=== PATIENT | male | born 1950 | race Caucasian/White ===

== ENCOUNTER 2016-11-16 23:12 | Inpatient (IN) | payer MEDICARE ==
[~2016-11-16] VITALS: Ht 162.6 cm; Wt 129.3 kg
[2016-11-16 23:30] VITALS: BP 113/74
[2016-11-17] VITALS (7 sets, daily range): BP systolic 99–140; BP diastolic 60–96
[2016-11-17 00:06] LABS: BASOPHILS % (AUTO) 0.7 % (0.0-2.0); EOSINOPHILS % (AUTO) 1.3 % (0.0-3.0); LYMPHOCYTES % (AUTO) 11.9 % (20.0-45.0); MEAN CORPUSCULAR HEMOGLOBIN 30.2 PG (27.0-31.0); MEAN CORPUSCULAR HGB CONC 32.7 G/DL (32.0-36.0); MEAN CORPUSCULAR VOLUME 92 FL (80-99); MEAN PLATELET VOLUME 7.9 FL (6.5-10.1); MONOCYTES % (AUTO) 11.5 % (1.0-10.0); NEUTROPHILS % (AUTO) 74.6 % (45.0-75.0); PLATELET COUNT 221 K/UL (150-450); RED BLOOD COUNT 4.33 M/UL (4.70-6.10); RED CELL DISTRIBUTION WIDTH 14.9 % (11.6-14.8); WHITE BLOOD COUNT 11.4 K/UL (4.8-10.8)
[2016-11-17 00:21] LABS: TROPONIN I < 0.30 ng/mL (<=0.30)
[2016-11-17 00:23] LABS: ALBUMIN/GLOBULIN RATIO 1.4 (1.0-2.7); CALCIUM 9.6 mg/dL (8.6-10.2); CREATININE 1.9 mg/dL (0.7-1.2); GLOMERULAR FILTRATION RATE 35.6 mL/min (>60); POTASSIUM 3.4 mEQ/L (3.4-4.9); TOTAL PROTEIN 7.9 g/dL (6.6-8.7)
[2016-11-17 00:33] LABS: CKMB 1.9 ng/mL (< 6.7)
[2016-11-17] MEDS ORDERED: Midodrine 10mg tab ORAL ONE (01:30)
--- NOTE | 2016-11-17 03:03 | Emergency Room Report ---
History of Present Illness General Chief Complaint: Syncope Source: Patient, EMS Present Illness HPI Patient presented for syncopal episode. Patient had reportedly lost consciousness while the standing. Patient prior history of congestive heart failure. Patient been taking diuretics. Patient reports having some slight leg swelling which had been improving. [facility] Allergies: Coded Allergies: No Known Allergies (Unverified , 11/16/16) Patient History Past Medical History: see triage record Reviewed Nursing Documentation: PMH: Agreed, PSxH: Agreed Nursing Documentation-PMH Hx Cardiac Problems: Yes - CHF , 3 HEART ATTACK Review of Systems All Other Systems: negative except mentioned in HPI Physical Exam Vital Signs Date Time Temp Pulse Resp B/P Pulse Ox O2 Delivery O2 Flow Rate FiO2 11/16/16 23:09 98.1 78 18 116/84 99 Room Air Sp02 EP Interpretation: reviewed, normal General Appearance: normal inspection, alert, moderate distress Head: atraumatic ENT: normal ENT inspection, hearing grossly normal, normal voice Neck: normal inspection, full range of motion, supple, no bony tend Respiratory: normal inspection, lungs clear, normal breath sounds, no respiratory distress, no retraction, no wheezing Cardiovascular #1: regular rate, rhythm, edema - 3+ Gastrointestinal: normal inspection, normal bowel sounds, non tender, soft, no guarding, no hernia Genitourinary: no CVA tenderness Musculoskeletal: normal inspection, back normal, normal range of motion Neurologic: normal inspection, alert, oriented x3, 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 Differential diagnosis include was not limited to arrhythmia. Pulmonary embolism, myocardial infarction, orthostasis, vasovagal episode among others.Because of complexity of patient's case laboratory testing and imaging studies were ordered. EKG interpreted by me showed sinus rhythm with a rate of [address] or T wave changes. Patient was noted to have a prolonged QT interval QTC was 512 patient noted have a right bundle-branch block. The patient was given IV Lasix. He is placed on traffic monitor specialist. Chest x-ray one view interpreted by me showed cardiomegaly without evident effusion or infiltrate or mediastinal widening. Dr. farley was contacted for inpatient management. Laboratory Tests Test 11/16/16 23:26 11/17/16 00:24 White Blood Count 11.4 K/UL (4.8-10.8) H Red Blood Count 4.33 M/UL (4.70-6.10) L Hemoglobin 13.1 G/DL (14.2-18.0) L Hematocrit 40.0 % (42.0-52.0) L Mean Corpuscular Volume 92 FL (80-99) Mean Corpuscular Hemoglobin 30.2 PG (27.0-31.0) Mean Corpuscular Hemoglobin Concent 32.7 G/DL (32.0-36.0) Red Cell Distribution Width 14.9 % (11.6-14.8) H Platelet Count 221 K/UL (150-450) Mean Platelet Volume 7.9 FL (6.5-10.1) Neutrophils (%) (Auto) 74.6 % (45.0-75.0) Lymphocytes (%) (Auto) 11.9 % (20.0-45.0) L Monocytes (%) (Auto) 11.5 % (1.0-10.0) H Eosinophils (%) (Auto) 1.3 % (0.0-3.0) Basophils (%) (Auto) 0.7 % (0.0-2.0) Sodium Level 139 mEQ/L (135-145) Potassium Level 3.4 mEQ/L (3.4-4.9) Chloride Level 91 mEQ/L (98-107) L Carbon Dioxide Level 34 mEQ/L (20-30) H Anion Gap 14 (5-15) Blood Urea Nitrogen 34 mg/dL (7-23) H Creatinine 1.9 mg/dL (0.7-1.2) H Estimate Glomerular Filtration Rate 35.6 mL/min (>60) Glucose Level 89 mg/dL (74-106) Calcium Level 9.6 mg/dL (8.6-10.2) Total Bilirubin 0.9 mg/dL (0.0-1.2) Aspartate Amino Transferase (AST) 23 U/L (5-40) Alanine Aminotransferase (ALT) 16 U/L (3-41) Alkaline Phosphatase 76 U/L (40-129) Total Creatine Kinase 184 U/L (38-174) H Creatine Kinase MB 1.9 ng/mL (< 6.7) Creatine Kinase MB Relative Index 1.0 Troponin I < 0.30 ng/mL (<=0.30) Pro-B-Type Natriuretic Peptide 491 pg/mL (0-125) H Total Protein 7.9 g/dL (6.6-8.7) Albumin 4.7 g/dL (3.5-5.2) Globulin 3.2 g/dL Albumin/Globulin Ratio 1.4 (1.0-2.7) Urine Opiates Screen Negative (NEGATIVE) Urine Barbiturates Screen Negative (NEGATIVE) Phencyclidine (PCP) Screen Negative (NEGATIVE) Urine Amphetamines Screen Negative (NEGATIVE) Urine Benzodiazepines Screen Negative (NEGATIVE) Urine Cocaine Screen Negative (NEGATIVE) Urine Marijuana (THC) Screen Negative (NEGATIVE) EKG Diagnostic Results Rate: normal Rhythm: NSR ST Segments: no acute changes Chest X-Ray Diagnostic Results EP Interpretation: Yes Findings: no consolidation, no effusion, no pneumothorax, no acute cardiopulmonary disease Number of Views: 1 Last Vital Signs Date Time Temp Pulse Resp B/P Pulse Ox O2 Delivery O2 Flow Rate FiO2 11/17/16 01:12 98.1 16 103/80 94 Room Air 11/16/16 23:30 71 Status: improved Disposition: ADMITTED INPATIENT Condition: Serious Referrals: NOT CHOSEN BRUNO/,REFERRING (PCP) Usama Baugh Nov 17, 2016 03:03
[2016-11-17] MEDS ORDERED: ASPIRIN81 M3 PO (05:18)
[2016-11-17] MEDS ORDERED: UNOBMED (05:18)
--- NOTE | 2016-11-17 11:39 | Diagnostic Imaging Report ---
Indication: Pain Comparison: None Findings: 2 view left ankle demonstrates soft tissue swelling which is nonspecific. There is no malalignment or fracture. Impression: Soft tissue swelling
--- NOTE | 2016-11-17 11:42 | Diagnostic Imaging Report ---
Indication: Dyspnea Comparison: None A single view chest radiograph was obtained. Findings: Sternotomy noted. Cardiomegaly spelled. Lungs are clear. The bones are slightly osteopenic. Impression: No acute disease
[2016-11-17] MEDS ORDERED: Nitroglycerin Subl 0.4mg tab (Bottle Of 25) SL PRN (12:30)
[2016-11-17] MEDS ORDERED: LORazepam Inj 2mg/ml 1ml IV PRN (12:30)
[2016-11-17] MEDS ORDERED: DuoNeb 0.5-3(2.5)mg/3ml neb HHN PRN (12:30)
[2016-11-17] MEDS ORDERED: Morphine Sulfate 2mg/ml Inj IVP PRN (12:30)
[2016-11-17] MEDS ORDERED: Promethazine/Codeine 5ml UD ORAL PRN (12:30)
[2016-11-17] MEDS ORDERED: Mylanta II UD 30ml ORAL PRN (12:30)
[2016-11-17] MEDS: D5 1/2NS 1,000 ML IV SCH (12:37)
--- NOTE | 2016-11-17 15:03 | Neurology Progress Note ---
Objective Physical Exam Last Vital Signs Date Time Temp Pulse Resp B/P Pulse Ox O2 Delivery O2 Flow Rate FiO2 11/17/16 11:00 61 11/17/16 10:25 98.1 16 128/62 95 Room Air Laboratory Tests Test 11/16/16 23:26 11/17/16 00:24 White Blood Count 11.4 K/UL (4.8-10.8) H Red Blood Count 4.33 M/UL (4.70-6.10) L Hemoglobin 13.1 G/DL (14.2-18.0) L Hematocrit 40.0 % (42.0-52.0) L Mean Corpuscular Volume 92 FL (80-99) Mean Corpuscular Hemoglobin 30.2 PG (27.0-31.0) Mean Corpuscular Hemoglobin Concent 32.7 G/DL (32.0-36.0) Red Cell Distribution Width 14.9 % (11.6-14.8) H Platelet Count 221 K/UL (150-450) Mean Platelet Volume 7.9 FL (6.5-10.1) Neutrophils (%) (Auto) 74.6 % (45.0-75.0) Lymphocytes (%) (Auto) 11.9 % (20.0-45.0) L Monocytes (%) (Auto) 11.5 % (1.0-10.0) H Eosinophils (%) (Auto) 1.3 % (0.0-3.0) Basophils (%) (Auto) 0.7 % (0.0-2.0) Sodium Level 139 mEQ/L (135-145) Potassium Level 3.4 mEQ/L (3.4-4.9) Chloride Level 91 mEQ/L (98-107) L Carbon Dioxide Level 34 mEQ/L (20-30) H Anion Gap 14 (5-15) Blood Urea Nitrogen 34 mg/dL (7-23) H Creatinine 1.9 mg/dL (0.7-1.2) H Estimat Glomerular Filtration Rate 35.6 mL/min (>60) Glucose Level 89 mg/dL (74-106) Calcium Level 9.6 mg/dL (8.6-10.2) Total Bilirubin 0.9 mg/dL (0.0-1.2) Aspartate Amino Transf (AST/SGOT) 23 U/L (5-40) Alanine Aminotransferase (ALT/SGPT) 16 U/L (3-41) Alkaline Phosphatase 76 U/L (40-129) Total Creatine Kinase 184 U/L (38-174) H Creatine Kinase MB 1.9 ng/mL (< 6.7) Creatine Kinase MB Relative Index 1.0 Troponin I < 0.30 ng/mL (<=0.30) Pro-B-Type Natriuretic Peptide 491 pg/mL (0-125) H Total Protein 7.9 g/dL (6.6-8.7) Albumin 4.7 g/dL (3.5-5.2) Globulin 3.2 g/dL Albumin/Globulin Ratio 1.4 (1.0-2.7) Urine Opiates Screen Negative (NEGATIVE) Urine Barbiturates Screen Negative (NEGATIVE) Phencyclidine (PCP) Screen Negative (NEGATIVE) Urine Amphetamines Screen Negative (NEGATIVE) Urine Benzodiazepines Screen Negative (NEGATIVE) Urine Cocaine Screen Negative (NEGATIVE) Urine Marijuana (THC) Screen Negative (NEGATIVE) Impression/Recommendations Problems: (1) Syncope (2) Congestive heart failure (CHF) (3) Prolonged QT interval Status: unchanged Recommendations # [id number] COLE GREENBERG Nov 17, 2016 15:03
--- NOTE | 2016-11-17 15:09 | History and Physical ---
History of Present Illness General Date patient seen: Nov 17, 2016 Reason for Hospitalization: Syncope Present Illness HPI 66 year old male with hx of morbid obesity who was just discharged from [place] [facility] brought with CC of syncopal episode. Patient had reportedly lost consciousness while the standing. Patient prior history of congestive heart failure. He has been taking diuretics. Patient reports having some slight leg swelling which had been improving. Pt is admitted to telemetry for further work up. Allergies: Coded Allergies: No Known Allergies (Unverified , 11/16/16) Medication History Miscellaneous Medications Aspirin (Aspirin), 81 MG PO, (Reported) Unable to Obtain Medications (Unable To Obtain Meds), (Reported) Patient History Healthcare decision maker Resuscitation status Full Code Advanced Directive on File Past Medical/Surgical History Past Medical/Surgical History: (1) Congestive heart failure (CHF) (2) Syncope Review of Systems All Other Systems: negative except mentioned in HPI Physical Exam General Appearance: WD/WN Lines, tubes and drains: peripheral, central line HEENT: normocephalic, atraumatic Neck: non-tender, normal alignment Respiratory/Chest: chest wall non-tender, lungs clear Cardiovascular/Chest: normal peripheral pulses, regular rhythm Abdomen: normal bowel sounds, non tender Genitourinary/Rectal: normal genital exam Extremities: non-tender Last 24 Hour Vital Signs Date Time Temp Pulse Resp B/P Pulse Ox O2 Delivery O2 Flow Rate FiO2 11/17/16 11:00 61 11/17/16 10:25 98.1 63 16 128/62 95 Room Air 11/17/16 08:41 62 20 122/65 97 Room Air 11/17/16 08:27 98.1 62 16 122/65 95 Room Air 11/17/16 06:45 98.1 65 16 140/96 93 Room Air 65 11/17/16 04:00 61 14 112/74 96 Room Air 61 11/17/16 02:21 98.1 11/17/16 01:12 98.1 16 103/80 94 Room Air 11/16/16 23:30 98.1 71 19 113/74 92 Room Air 11/16/16 23:09 98.1 78 18 116/84 99 Room Air Intake and Output 11/16/16 11/17/16 19:00 07:00 # Voids 1 Laboratory Tests Test 11/16/16 23:26 11/17/16 00:24 White Blood Count 11.4 K/UL (4.8-10.8) H Red Blood Count 4.33 M/UL (4.70-6.10) L Hemoglobin 13.1 G/DL (14.2-18.0) L Hematocrit 40.0 % (42.0-52.0) L Mean Corpuscular Volume 92 FL (80-99) Mean Corpuscular Hemoglobin 30.2 PG (27.0-31.0) Mean Corpuscular Hemoglobin Concent 32.7 G/DL (32.0-36.0) Red Cell Distribution Width 14.9 % (11.6-14.8) H Platelet Count 221 K/UL (150-450) Mean Platelet Volume 7.9 FL (6.5-10.1) Neutrophils (%) (Auto) 74.6 % (45.0-75.0) Lymphocytes (%) (Auto) 11.9 % (20.0-45.0) L Monocytes (%) (Auto) 11.5 % (1.0-10.0) H Eosinophils (%) (Auto) 1.3 % (0.0-3.0) Basophils (%) (Auto) 0.7 % (0.0-2.0) Sodium Level 139 mEQ/L (135-145) Potassium Level 3.4 mEQ/L (3.4-4.9) Chloride Level 91 mEQ/L (98-107) L Carbon Dioxide Level 34 mEQ/L (20-30) H Anion Gap 14 (5-15) Blood Urea Nitrogen 34 mg/dL (7-23) H Creatinine 1.9 mg/dL (0.7-1.2) H Estimat Glomerular Filtration Rate 35.6 mL/min (>60) Glucose Level 89 mg/dL (74-106) Calcium Level 9.6 mg/dL (8.6-10.2) Total Bilirubin 0.9 mg/dL (0.0-1.2) Aspartate Amino Transf (AST/SGOT) 23 U/L (5-40) Alanine Aminotransferase (ALT/SGPT) 16 U/L (3-41) Alkaline Phosphatase 76 U/L (40-129) Total Creatine Kinase 184 U/L (38-174) H Creatine Kinase MB 1.9 ng/mL (< 6.7) Creatine Kinase MB Relative Index 1.0 Troponin I < 0.30 ng/mL (<=0.30) Pro-B-Type Natriuretic Peptide 491 pg/mL (0-125) H Total Protein 7.9 g/dL (6.6-8.7) Albumin 4.7 g/dL (3.5-5.2) Globulin 3.2 g/dL Albumin/Globulin Ratio 1.4 (1.0-2.7) Urine Opiates Screen Negative (NEGATIVE) Urine Barbiturates Screen Negative (NEGATIVE) Phencyclidine (PCP) Screen Negative (NEGATIVE) Urine Amphetamines Screen Negative (NEGATIVE) Urine Benzodiazepines Screen Negative (NEGATIVE) Urine Cocaine Screen Negative (NEGATIVE) Urine Marijuana (THC) Screen Negative (NEGATIVE) Height (Feet): 5 Height (Inches): 4.00 Weight (Pounds): 285 Medications Current Medications Medications (Trade) Dose Ordered Sig/Gregorio Route PRN Reason Start Time Stop Time Status Last Admin Dose Admin Acetaminophen (Tylenol) 650 mg Q4H PRN ORAL fever>100.5 11/17/16 12:30 12/17/16 12:29 Al Hydroxide/Mg Hydroxide (Mylanta II) 30 ml Q6H PRN ORAL dyspepsia 11/17/16 12:30 12/17/16 12:29 Albuterol/ Ipratropium (DuoNeb 0.5-3(2.5)mg/3ml) 3 ml Q4H PRN HHN Shortness of Breath 11/17/16 12:30 11/22/16 12:29 Clonidine HCl (Catapres) 0.1 mg Q4H PRN ORAL For High Blood Pressure 11/17/16 12:30 12/17/16 12:29 Dextrose (Dextrose 50%) STAT PRN IV Hypoglycemia 11/17/16 12:30 12/17/16 12:29 Dextrose/Sodium Chloride (D5 0.45% NS) 1,000 ml @ 50 mls/hr Q20H IV 11/17/16 12:30 12/17/16 12:29 11/17/16 12:37 Heparin Sodium (Porcine) (Heparin 5000 units/ml) 5,000 units EVERY 12 HOURS SUBQ 11/17/16 21:00 12/17/16 20:59 Lorazepam (Ativan 2mg/ml 1ml) 0.5 mg Q4H PRN IV For Anxiety 11/17/16 12:30 11/24/16 12:29 Morphine Sulfate (Morphine Sulfate) 1 mg Q4H PRN IVP For Pain 7-10 11/17/16 12:30 11/24/16 12:29 Nitroglycerin (Ntg) 0.4 mg Q5M X 3 DOSES PRN SL Prn Chest Pain 11/17/16 12:30 12/17/16 12:29 Ondansetron HCl (Zofran) 4 mg Q6H PRN IVP Nausea & Vomiting 11/17/16 12:30 12/17/16 12:29 Polyethylene Glycol (Miralax) 17 gm HSPRN PRN ORAL Constipation 11/17/16 21:00 12/17/16 20:59 Promethazine HCl/ Codeine (Phenergan with Codeine) 5 ml Q4H PRN ORAL For Cough 11/17/16 12:30 12/17/16 12:29 Temazepam (Restoril) 15 mg HSPRN PRN ORAL Insomnia 11/17/16 21:00 11/24/16 20:59 Assessment/Plan Problem List: (1) Acute encephalopathy ICD Codes: G93.40 - Encephalopathy, unspecified SNOMED: 3634698 (2) Congestive heart failure (CHF) ICD Codes: I50.9 - Heart failure, unspecified SNOMED: 24956215 (3) Syncope ICD Codes: R55 - Syncope and collapse SNOMED: 195785906 Assessment/Plan echo, doppler of carotid artey neuro evaluation cardio evaluation JENNIFER RASHID Nov 17, 2016 15:09
--- NOTE | 2016-11-17 19:32 | Cardiology Progress Note ---
Assessment/Plan Assessment/Plan syncope recurrent cad s/p recetn 5 v cabg 2015 avr , mvr obesity ngoc on cpap rbbb keep off acie diuretic for nwo check protime i son coumadin ? echo repeat cardiac enzyme agree with guillaume ivf until ef is known orthosttic vital [id number] Objective Last 24 Hour Vital Signs Date Time Temp Pulse Resp B/P Pulse Ox O2 Delivery O2 Flow Rate FiO2 11/17/16 16:00 97.2 65 18 99/60 98 Room Air 11/17/16 15:00 67 18 Room Air 21 11/17/16 11:00 61 11/17/16 10:25 98.1 63 16 128/62 95 Room Air 11/17/16 08:41 62 20 122/65 97 Room Air 11/17/16 08:27 98.1 62 16 122/65 95 Room Air 11/17/16 06:45 98.1 65 16 140/96 93 Room Air 65 11/17/16 04:00 61 14 112/74 96 Room Air 61 11/17/16 02:21 98.1 11/17/16 01:12 98.1 16 103/80 94 Room Air 11/16/16 23:30 98.1 71 19 113/74 92 Room Air 11/16/16 23:09 98.1 78 18 116/84 99 Room Air Intake and Output 11/16/16 11/17/16 19:00 07:00 # Voids 1 Laboratory Tests Test 11/16/16 23:26 11/17/16 00:24 White Blood Count 11.4 K/UL (4.8-10.8) H Red Blood Count 4.33 M/UL (4.70-6.10) L Hemoglobin 13.1 G/DL (14.2-18.0) L Hematocrit 40.0 % (42.0-52.0) L Mean Corpuscular Volume 92 FL (80-99) Mean Corpuscular Hemoglobin 30.2 PG (27.0-31.0) Mean Corpuscular Hemoglobin Concent 32.7 G/DL (32.0-36.0) Red Cell Distribution Width 14.9 % (11.6-14.8) H Platelet Count 221 K/UL (150-450) Mean Platelet Volume 7.9 FL (6.5-10.1) Neutrophils (%) (Auto) 74.6 % (45.0-75.0) Lymphocytes (%) (Auto) 11.9 % (20.0-45.0) L Monocytes (%) (Auto) 11.5 % (1.0-10.0) H Eosinophils (%) (Auto) 1.3 % (0.0-3.0) Basophils (%) (Auto) 0.7 % (0.0-2.0) Sodium Level 139 mEQ/L (135-145) Potassium Level 3.4 mEQ/L (3.4-4.9) Chloride Level 91 mEQ/L (98-107) L Carbon Dioxide Level 34 mEQ/L (20-30) H Anion Gap 14 (5-15) Blood Urea Nitrogen 34 mg/dL (7-23) H Creatinine 1.9 mg/dL (0.7-1.2) H Estimat Glomerular Filtration Rate 35.6 mL/min (>60) Glucose Level 89 mg/dL (74-106) Calcium Level 9.6 mg/dL (8.6-10.2) Total Bilirubin 0.9 mg/dL (0.0-1.2) Aspartate Amino Transf (AST/SGOT) 23 U/L (5-40) Alanine Aminotransferase (ALT/SGPT) 16 U/L (3-41) Alkaline Phosphatase 76 U/L (40-129) Total Creatine Kinase 184 U/L (38-174) H Creatine Kinase MB 1.9 ng/mL (< 6.7) Creatine Kinase MB Relative Index 1.0 Troponin I < 0.30 ng/mL (<=0.30) Pro-B-Type Natriuretic Peptide 491 pg/mL (0-125) H Total Protein 7.9 g/dL (6.6-8.7) Albumin 4.7 g/dL (3.5-5.2) Globulin 3.2 g/dL Albumin/Globulin Ratio 1.4 (1.0-2.7) Urine Opiates Screen Negative (NEGATIVE) Urine Barbiturates Screen Negative (NEGATIVE) Phencyclidine (PCP) Screen Negative (NEGATIVE) Urine Amphetamines Screen Negative (NEGATIVE) Urine Benzodiazepines Screen Negative (NEGATIVE) Urine Cocaine Screen Negative (NEGATIVE) Urine Marijuana (THC) Screen Negative (NEGATIVE) VERITO PAULSON Nov 17, 2016 19:31
[2016-11-17] MEDS: Heparin 5000 units/ml inj SUBQ SCH (20:53)
[2016-11-17] MEDS ORDERED: Miralax 17gm pkt ORAL PRN (21:00)
--- NOTE | 2016-11-17 21:48 | Consultation ---
DATE OF CONSULTATION: 11/17/2016 NEUROLOGICAL CONSULTATION CONSULTING PHYSICIAN: Donte Braden M.D. REQUESTING PHYSICIAN: Bernie Rodriguez M.D. HISTORY OF PRESENT ILLNESS: The patient is a 66-year-old gentleman seen in neurological consultation to evaluate an episode of transient loss of consciousness. The patient informed me that he is suffering from multiple chronic conditions including sleep apnea and required CPAP. A few days ago, in sleep, he started to feel shortness of breath and gasping for air. He woke up several times, feeling profusely sweating. At that point, he called 911. He was taken to [facility] emergency room where he spent three days undergoing workup. While at the hospital after sitting in the chair, he got up and at that point, he fell down with profound generalized weakness and changes in level of consciousness, still having no memory loss. This workup was not productive. The patient indicated they could not find the reason for his condition and discharged him stable. He was feeling well. The same day around 10 p.m. after having a couple of oranges eating and sitting at the table, he got up, at that point he lost consciousness and fell. He woke up on the floor feeling dizzy with the pain in his left ankle. Paramedics were called to the scene. His vital signs in the field with blood pressure of 116/84, heart rate of 78, respirations 16, and pulse oximetry was 99%. The patient's friend was stating that he passed out and was unresponsive for 10 seconds. He was brought to the emergency room where his vital signs remained stable. EKG was obtained revealing sinus rhythm, rate of 69, signs of right bundle-branch block. He was treated with IV fluids, placed on cardiac monitoring. Chest x-ray revealed cardiomegaly without evidence of effusion or infiltrate. His initial laboratory work included a CBC study with WBC 11.4, hemoglobin 13.1, and hematocrit 40.0. His chemistry panel, elevated carbon dioxide of 34, BUN of 34, creatinine 1.9, and CK of 184 with BNP 491. Normal troponin. Normal CK. His toxicology panel was negative. The patient was complaining of left ankle pain and difficulty ambulation. X-ray reveals soft tissue swelling, no fracture and no dislocation noted. Following admission until present time, there were no changes in mental status. The patient indicates that he has no recollection of having previous loss of consciousness episode. PAST MEDICAL HISTORY: The patient has a history of congestive heart failure and coronary artery disease. He had three heart attacks. He has a history of chronic renal insufficiency. MEDICATIONS: He is on albuterol, Catapres, p.r.n. Ativan, morphine for pain, Nitro, Zofran, MiraLax, Restoril, and Tylenol p.r.n. SOCIAL HISTORY: The patient lives in a community house with 40 other people. He denies alcohol or drug abuse. 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 REVIEW OF SYSTEMS: The patient complains of shortness of breath on exertion, pain in his left ankle. No chest pain. No palpitations. He has respiratory difficulty with exertion and has a CPAP at nighttime "failing" if he has episodes of shortness of breath with profuse sweating. No evidence of previous strokes or transient ischemic attack. No seizure activities. PHYSICAL EXAMINATION: GENERAL: A well-developed, morbidly obese man, not in acute distress, lying comfortably in bed. VITAL SIGNS: Now stable. Blood pressure 122/62, temperature 98.1 degrees, and pulse oximetry 95%. HEENT: Head is normocephalic. No evidence of trauma. Eyes, ears, nose and throat are clear. NECK: Supple. No meningeal signs. MUSCULOSKELETAL: Unremarkable except tenderness on palpation, left ankle jerks. Peripheral pulses 1+ symmetric. MENTAL STATUS: The patient is fully alert and oriented x3. Speech is fluent. Language intact. There is no aphasia. No apraxia. Cognitive function normal. CRANIAL NERVE II: Pupils both responding to light and accommodation. Extraocular movement intact. No nystagmus. CRANIAL NERVE V: Normal corneal responses. CRANIAL NERVE VII: No facial asymmetry. CRANIAL NERVE VIII: Grossly normal hearing. CRANIAL NERVES IX THROUGH XII: Tongue is in midline. Symmetric palate elevation. MOTOR EXAMINATION: Normal muscle tone. Strength is 5/5. Able to lift arms and legs against the gravity. Deep tendon reflexes 1+ bilaterally symmetric. Plantar responses flexor. SENSORY EXAMINATION: Normal to pinprick and light touch. Gait not tested due to pain in his left foot. IMPRESSION: 1. This is a 66-year-old gentleman with multiple medical issues, presenting with recurrent syncope, probably vasovagal in origin. Rule out cardiac event with cardiac bradyarrhythmia. 2. Morbid obesity. 3. Hypertension. 4. Congestive heart failure. 5. Chronic renal insufficiency. 6. Chronic obstructive pulmonary disease. 7. Obstructive sleep apnea, on CPAP. RECOMMENDATION: 1. Check orthostatic blood pressure. 2. Cardiac reassessment to rule out cardiac arrhythmia. 3. Carotid duplex study. 4. Obtain extensive workup, which was done at [facility] two days ago to avoid duplicate studies. 5. Continue aspirin 81 mg daily. 6. In the long run, the patient will need a significant weight control, ambulation. Thank you for allowing me to see this interesting patient in neurological consultation. Donte Braden M.D. DR: CAN JOB#: [id number] CC:
[2016-11-17 23:22] LABS: APPEARANCE,URINE CLEAR; KETONES,URINE NEGATIVE (NEGATIVE); LEUKOCYTE ESTERASE ,URINE NEGATIVE (NEGATIVE); NITRITE,URINE NEGATIVE (NEGATIVE); PH,URINE 6 (4.5-8.0); PROTEIN,URINE 1+ (NEGATIVE); UROBILINOGEN,URINE 1 MG/DL (0.0-1.0)
[2016-11-17 23:34] LABS: RBC,URINE 0-2 /HPF (0 - 0); WBC,URINE 0 /HPF (0 - 0)
[2016-11-18] VITALS: BP 116/70
[2016-11-18 04:00] VITALS: BP 100/60
--- NOTE | 2016-11-18 04:48 | Consultation ---
DATE OF CONSULTATION: 11/17/2016 CARDIAC CONSULTATION CONSULTING PHYSICIAN: Randall Clark M.D. REFERRING PHYSICIAN: Bernie Rodriguez M.D. REASON FOR REFERRAL: Syncope. HISTORY OF PRESENT ILLNESS: The patient is a 66-year-old male, who has history of coronary artery disease and valvular heart disease status post myocardial infarction and three separate open heart surgeries, last one was over a month ago at [facility] where he had aortic and mitral valve replacement and apparently five-vessel bypass. He has had chronic shortness of breath with any kind of exertion since 2007. No PND, although a few nights ago, he woke up on his BiPAP because of shortness of breath, initially thought it was a problem with the BiPAP, resumed and again woke up with shortness of breath and diaphoresis. He was taken to the emergency room at [facility] where he was hospitalized and during that hospitalization, he tried to get up and almost fell over. He was in the intensive care unit for one day and subsequently in another floor and was discharged yesterday. Six hours later while he was saying goodbye to his friends at the homeless [facility], he apparently passed out again, found himself on the floor. Paramedics were summoned and the patient was brought to the emergency room of [facility]. Tipple Supervisor run sheet was reviewed and indicate that the patient had blood pressure of 104/78 with a heart rate of 74, and indicate the patient experienced syncope. A friend stated he had passed out and was unresponsive for approximately 10 seconds and was discharged from the hospital. He denies any chest pain at the time the paramedics . He actually denies any chest pain at this time and he was brought to the emergency room. He has shortness of breath as mentioned. There is no PND. He uses two pillows and uses a CPAP machine all the time. He has dizziness when he sits up and stands up and understands that he cannot do that very fast. Previously, he has had episodes of syncope, for which he was told it is related to too much diuretics. PAST MEDICAL HISTORY: Positive for history of coronary artery disease, three separate coronary artery bypass grafting, had aortic valve and mitral valve replacement recently 11 months ago. No cancer. No stroke. No hepatitis, tuberculosis, asthma, emphysema, or ulcers. No kidney problems, liver problems, thyroid problems, anemia, arthritis, and blood clots anywhere. ALLERGIES: He is not allergic to any medications. SOCIAL HISTORY: He never smoked. He drinks alcoholic beverages. No drug use. He lives in a homeless prison. REVIEW OF SYSTEMS: Gastrointestinal: Negative. Genitourinary: Multiple nocturic episodes after taking Lasix. Pulmonary: Occasional coughing. Constitutional: Negative. Neurological: Negative. PHYSICAL EXAMINATION: GENERAL: The patient is a morbidly obese, elderly gentleman, in no apparent respiratory distress. NECK: Supple. There is no jugular venous distention. LUNGS: Appear to be clear to auscultation at this time. CARDIAC: Regular rhythm. No heaves or thrills noted. I do not appreciate any mechanical heart sounds and there may be an increased P2 component, although related to valve replacement. ABDOMEN: Soft, obese. Positive bowel sounds. EXTREMITIES: A 1+ edema of lower extremity. NEUROLOGICAL: He is awake, alert, responsive, in no apparent respiratory distress. LABORATORY AND DIAGNOSTIC DATA: He has got a white count of 11.4, hemoglobin 13.1, and platelet count 221,000. His sodium is 139, potassium 3.4, chloride 91, bicarbonate 34, BUN 34, creatinine 1.9, and glucose of 89. Liver function tests are relatively normal. CK of 184. Troponin is less than 0.03. ProBNP is 491 only. Albumin of 4.7. Tox screen is negative. There was no urinalysis. Chest x-ray was fairly unremarkable. Reading by the radiologist shows sternotomy and cardiomegaly. Lungs are clear. Bones are slightly osteopenic, and he had x-rays of his ankles where he injured. Soft tissue swelling was documented. His EKG shows right bundle-branch conduction defect with a sinus rhythm. No significant pauses. Telemetry data also shows sinus rhythm, but no significant pauses. ASSESSMENT: 1. Syncope. 2. Coronary artery disease, status post coronary artery bypass grafting on multiple times. 3. Aortic valve and mitral valve replacement. 4. Obesity. 5. Sleep apnea. 6. Evidence of right heart failure. 7. Hypotension. Dr. Rodriguez, this patient was seen in cardiac consultation. The patient's most recent blood pressure is 99/60. His stat level is as high as 140/96. We recommend checking orthostatic vitals at this time. Repeat cardiac enzyme, intravenous fluids gingerly. An echocardiogram should be ordered to see if he has got right ventricular failure related to possibly sleep apnea, whether there is any evidence of left ventricular systolic function. I do agree with guillaume hydration until the results of the echocardiogram becomes available, and he should be kept off of diuretics. It is of note that this wall washer run sheet do indicate his medications, including Coumadin, , lisinopril as well as Lasix. Lasix should be discontinued for the time being until orthostasis is confirmed or excluded. Randall Clark M.D. DR: DON JOB#: [id number] CC:
[2016-11-18] MEDS: D5 1/2NS 1,000 ML IV SCH (06:00)
[2016-11-18 06:45] LABS: BASOPHILS % (AUTO) 1.3 % (0.0-2.0); EOSINOPHILS % (AUTO) 1.9 % (0.0-3.0); LYMPHOCYTES % (AUTO) 15.2 % (20.0-45.0); MEAN CORPUSCULAR HEMOGLOBIN 30.4 PG (27.0-31.0); MEAN CORPUSCULAR HGB CONC 32.7 G/DL (32.0-36.0); MEAN CORPUSCULAR VOLUME 93 FL (80-99); MEAN PLATELET VOLUME 8.4 FL (6.5-10.1); NEUTROPHILS % (AUTO) 72.6 % (45.0-75.0); PLATELET COUNT 194 K/UL (150-450); RED BLOOD COUNT 3.95 M/UL (4.70-6.10); RED CELL DISTRIBUTION WIDTH 14.9 % (11.6-14.8); WHITE BLOOD COUNT 9.9 K/UL (4.8-10.8)
[2016-11-18 06:58] LABS: INR 1.1 (0.9-1.1); PROTHROMBIN TIME 11.7 SEC (9.30-11.50)
[2016-11-18 07:10] LABS: ALBUMIN/GLOBULIN RATIO 1.4 (1.0-2.7); CALCIUM 9.1 mg/dL (8.6-10.2); CHOLESTEROL/HDL RATIO 4.4 (3.3-4.4); CREATININE 1.5 mg/dL (0.7-1.2); GLOMERULAR FILTRATION RATE 46.8 mL/min (>60); POTASSIUM 3.5 mEQ/L (3.4-4.9); TOTAL PROTEIN 7.2 g/dL (6.6-8.7)
[2016-11-18 07:13] LABS: THYROID STIMULATING HORMONE 2.18 uIU/mL (0.300-4.500)
[2016-11-18 07:32] LABS: TROPONIN I < 0.30 ng/mL (<=0.30)
[2016-11-18 08:00] VITALS: BP 134/79
[2016-11-18] MEDS: Heparin 5000 units/ml inj SUBQ SCH ×2 (08:09→22:22)
[2016-11-18 12:00] VITALS: BP 137/86
[2016-11-18] MEDS: Morphine Sulfate 2mg/ml Inj IVP PRN ×3 (14:14→23:28)
--- NOTE | 2016-11-18 15:12 | Pulmonology Progress Note ---
Assessment/Plan Problems: (1) Acute encephalopathy (2) Congestive heart failure (CHF) (3) Syncope Assessment/Plan frequent PAC's renal function improving echo reviewed social service consult Subjective ROS Limited/Unobtainable: No Interval Events: no new complains Allergies: Coded Allergies: No Known Allergies (Unverified , 11/16/16) Objective Last 24 Hour Vital Signs Date Time Temp Pulse Resp B/P Pulse Ox O2 Delivery O2 Flow Rate FiO2 11/18/16 12:00 97.0 72 18 137/86 95 Room Air 11/18/16 12:00 71 11/18/16 08:00 96.9 75 18 134/79 95 Room Air 11/18/16 08:00 70 11/18/16 07:40 75 18 Room Air 21 11/18/16 04:00 97.7 71 18 100/60 95 Room Air 11/18/16 04:00 71 72 83 11/18/16 04:00 69 11/18/16 00:00 74 11/18/16 00:00 97.5 69 16 116/70 95 Room Air 11/17/16 20:00 69 11/17/16 20:00 98.2 68 19 137/61 94 Room Air 11/17/16 19:43 66 18 Room Air 21 11/17/16 16:00 97.2 65 18 99/60 98 Room Air 11/17/16 16:00 69 Intake and Output 11/17/16 11/18/16 19:00 07:00 Intake Total 990 ml 550 ml Output Total 500 ml Balance 490 ml 550 ml Intake Oral 640 ml IV Total 350 ml 550 ml Output Urine Total 500 ml # Voids 1 2 Objective General Appearance: WD/WN Lines, tubes and drains: peripheral, central line HEENT: normocephalic, atraumatic Neck: non-tender, normal alignment Respiratory/Chest: chest wall non-tender, lungs clear Cardiovascular/Chest: normal peripheral pulses, regular rhythm Abdomen: normal bowel sounds, non tender Genitourinary/Rectal: normal genital exam Extremities: non-tender Laboratory Tests 11/17/16 23:00: Urine Color Pale yellow, Urine Appearance Clear, Urine pH 6, Urine Specific [place] 1.015, Urine Protein 1+H, Urine Glucose (UA) Negative, Urine Ketones Negative, Urine Occult Blood 2+H, Urine Nitrite Negative, Urine Bilirubin Negative, Urine Urobilinogen 1H, Urine Leukocyte Esterase Negative, Urine RBC 0- 2H, Urine WBC 0, Urine Squamous Epithelial Cells None, Urine Bacteria None 11/18/16 05:45: White Blood Count 9.9, Red Blood Count 3.95L, Hemoglobin 12.0L, Hematocrit 36.7L , Mean Corpuscular Volume 93, Mean Corpuscular Hemoglobin 30.4, Mean Corpuscular Hemoglobin Concent 32.7, Red Cell Distribution Width 14.9H, Platelet Count 194, Mean Platelet Volume 8.4, Neutrophils (%) (Auto) 72.6, Lymphocytes (%) (Auto) 15.2L, Monocytes (%) (Auto) 9.0, Eosinophils (%) (Auto) 1.9, Basophils (%) (Auto) 1.3, Prothrombin Time 11.7H, Prothromb Time International Ratio 1.1, Activated Partial Thromboplast Time 26, Sodium Level 140, Potassium Level 3.5, Chloride Level 95L, Carbon Dioxide Level 33H, Anion Gap 12, Blood Urea Nitrogen 27H, Creatinine 1.5H, Estimat Glomerular Filtration Rate 46.8, Glucose Level 111H, Calcium Level 9.1, Magnesium Level 2.1, Total Bilirubin 0.8, Aspartate Amino Transf (AST/SGOT) 17, Alanine Aminotransferase ( ALT/SGPT) 12, Alkaline Phosphatase 69, Troponin I < 0.30, Total Protein 7.2, Albumin 4.3, Globulin 2.9, Albumin/Globulin Ratio 1.4, Triglycerides Level 138, Cholesterol Level 123, LDL Cholesterol 67, HDL Cholesterol 28, Cholesterol/HDL Ratio 4.4, Thyroid Stimulating Hormone (TSH) 2.180 Current Medications Medications (Trade) Dose Ordered Sig/Gregorio Route PRN Reason Start Time Stop Time Status Last Admin Dose Admin Acetaminophen (Tylenol) 650 mg Q4H PRN ORAL fever>100.5 11/17/16 12:30 12/17/16 12:29 Al Hydroxide/Mg Hydroxide (Mylanta II) 30 ml Q6H PRN ORAL dyspepsia 11/17/16 12:30 12/17/16 12:29 Albuterol/ Ipratropium (DuoNeb 0.5-3(2.5)mg/3ml) 3 ml Q4H PRN HHN Shortness of Breath 11/17/16 12:30 11/22/16 12:29 Clonidine HCl (Catapres) 0.1 mg Q4H PRN ORAL For High Blood Pressure 11/17/16 12:30 12/17/16 12:29 Dextrose (Dextrose 50%) STAT PRN IV Hypoglycemia 11/17/16 12:30 12/17/16 12:29 Dextrose/Sodium Chloride (D5 0.45% NS) 1,000 ml @ 50 mls/hr Q20H IV 11/17/16 12:30 12/17/16 12:29 11/18/16 06:00 Heparin Sodium (Porcine) (Heparin 5000 units/ml) 5,000 units EVERY 12 HOURS SUBQ 11/17/16 21:00 12/17/16 20:59 11/18/16 08:09 Lorazepam (Ativan 2mg/ml 1ml) 0.5 mg Q4H PRN IV For Anxiety 11/17/16 12:30 11/24/16 12:29 Morphine Sulfate (Morphine Sulfate) 2 mg Q4H PRN IVP Severe Pain (Pain Scale 7-10) 11/18/16 09:00 11/25/16 08:59 11/18/16 14:14 Nitroglycerin (Ntg) 0.4 mg Q5M X 3 DOSES PRN SL Prn Chest Pain 11/17/16 12:30 12/17/16 12:29 Ondansetron HCl (Zofran) 4 mg Q6H PRN IVP Nausea & Vomiting 11/17/16 12:30 12/17/16 12:29 Polyethylene Glycol (Miralax) 17 gm HSPRN PRN ORAL Constipation 11/17/16 21:00 12/17/16 20:59 Promethazine HCl/ Codeine (Phenergan with Codeine) 5 ml Q4H PRN ORAL For Cough 11/17/16 12:30 12/17/16 12:29 Temazepam (Restoril) 15 mg HSPRN PRN ORAL Insomnia 11/17/16 21:00 11/24/16 20:59 JENNIFER RASHID Nov 18, 2016 15:12
[2016-11-18 16:00] VITALS: BP 129/69
--- NOTE | 2016-11-18 18:19 | Cardiology Progress Note ---
Assessment/Plan Assessment/Plan 1. Syncope. 2. Coronary artery disease, status post coronary artery bypass grafting on multiple times. 3. Aortic valve and mitral valve replacement. 4. Obesity. 5. Sleep apnea. 6. Evidence of right heart failure. 7. Hypotension 8. ankle injury tele persoanlly reviewed echo prelim looks fin with no lv systolic disfunction but tds not orthostatic but bp on the low side ivf would keep off acei and lasix for now repeat orthostatics daily if has positive orthostatic vitals will start on midodrine low dose d/w rn d/w pt Subjective Cardiovascular: Denies: lightheadedness, palpitations Gastrointestinal/Abdominal: Denies: abdomen distended Subjective unable to stand due to ankle pain Objective Last 24 Hour Vital Signs Date Time Temp Pulse Resp B/P Pulse Ox O2 Delivery O2 Flow Rate FiO2 11/18/16 16:00 97.3 64 18 129/69 95 Room Air 11/18/16 12:00 97.0 72 18 137/86 95 Room Air 11/18/16 12:00 71 11/18/16 08:00 96.9 75 18 134/79 95 Room Air 11/18/16 08:00 70 11/18/16 07:40 75 18 Room Air 21 11/18/16 04:00 97.7 71 18 100/60 95 Room Air 11/18/16 04:00 71 72 83 11/18/16 04:00 69 11/18/16 00:00 74 11/18/16 00:00 97.5 69 16 116/70 95 Room Air 11/17/16 20:00 69 11/17/16 20:00 98.2 68 19 137/61 94 Room Air 11/17/16 19:43 66 18 Room Air 21 General Appearance: obese Neck: no JVD Cardiovascular: normal rate, regular rhythm Respiratory/Chest: decreased breath sounds Abdomen: normal bowel sounds, non tender, soft Extremities: trace edema Intake and Output 11/17/16 11/18/16 19:00 07:00 Intake Total 990 ml 550 ml Output Total 500 ml Balance 490 ml 550 ml Intake Oral 640 ml IV Total 350 ml 550 ml Output Urine Total 500 ml # Voids 1 2 Laboratory Tests Test 11/17/16 23:00 11/18/16 05:45 Urine Color Pale yellow Urine Appearance Clear Urine pH 6 (4.5-8.0) Urine Specific [place] 1.015 (1.005-1.035) Urine Protein 1+ (NEGATIVE) H Urine Glucose (UA) Negative (NEGATIVE) Urine Ketones Negative (NEGATIVE) Urine Occult Blood 2+ (NEGATIVE) H Urine Nitrite Negative (NEGATIVE) Urine Bilirubin Negative (NEGATIVE) Urine Urobilinogen 1 MG/DL (0.0-1.0) H Urine Leukocyte Esterase Negative (NEGATIVE) Urine RBC 0-2 /HPF (0 - 0) H Urine WBC 0 /HPF (0 - 0) Urine Squamous Epithelial Cells None /LPF (NONE/OCC) Urine Bacteria None /HPF (NONE) White Blood Count 9.9 K/UL (4.8-10.8) Red Blood Count 3.95 M/UL (4.70-6.10) L Hemoglobin 12.0 G/DL (14.2-18.0) L Hematocrit 36.7 % (42.0-52.0) L Mean Corpuscular Volume 93 FL (80-99) Mean Corpuscular Hemoglobin 30.4 PG (27.0-31.0) Mean Corpuscular Hemoglobin Concent 32.7 G/DL (32.0-36.0) Red Cell Distribution Width 14.9 % (11.6-14.8) H Platelet Count 194 K/UL (150-450) Mean Platelet Volume 8.4 FL (6.5-10.1) Neutrophils (%) (Auto) 72.6 % (45.0-75.0) Lymphocytes (%) (Auto) 15.2 % (20.0-45.0) L Monocytes (%) (Auto) 9.0 % (1.0-10.0) Eosinophils (%) (Auto) 1.9 % (0.0-3.0) Basophils (%) (Auto) 1.3 % (0.0-2.0) Prothrombin Time 11.7 SEC (9.30-11.50) H Prothromb Time International Ratio 1.1 (0.9-1.1) Activated Partial Thromboplast Time 26 SEC (23-33) Sodium Level 140 mEQ/L (135-145) Potassium Level 3.5 mEQ/L (3.4-4.9) Chloride Level 95 mEQ/L (98-107) L Carbon Dioxide Level 33 mEQ/L (20-30) H Anion Gap 12 (5-15) Blood Urea Nitrogen 27 mg/dL (7-23) H Creatinine 1.5 mg/dL (0.7-1.2) H Estimat Glomerular Filtration Rate 46.8 mL/min (>60) Glucose Level 111 mg/dL (74-106) H Calcium Level 9.1 mg/dL (8.6-10.2) Magnesium Level 2.1 mg/dL (1.7-2.5) Total Bilirubin 0.8 mg/dL (0.0-1.2) Aspartate Amino Transf (AST/SGOT) 17 U/L (5-40) Alanine Aminotransferase (ALT/SGPT) 12 U/L (3-41) Alkaline Phosphatase 69 U/L (40-129) Troponin I < 0.30 ng/mL (<=0.30) Total Protein 7.2 g/dL (6.6-8.7) Albumin 4.3 g/dL (3.5-5.2) Globulin 2.9 g/dL Albumin/Globulin Ratio 1.4 (1.0-2.7) Triglycerides Level 138 mg/dL (< 150) Cholesterol Level 123 mg/dL (< 200) LDL Cholesterol 67 mg/dL (60-99) HDL Cholesterol 28 mg/dL (> 60) Cholesterol/HDL Ratio 4.4 (3.3-4.4) Thyroid Stimulating Hormone (TSH) 2.180 uIU/mL (0.300-4.500) VERITO PAULSON Nov 18, 2016 18:18
[2016-11-18 20:00] VITALS: BP 107/72
--- NOTE | 2016-11-18 23:27 | Cardiology Report ---
APPROVED REPORT EKG Measurement Heart [id number] Sinus rhythm with premature atrial complexes with aberrant conduction Right bundle branch block Abnormal ECG
--- NOTE | 2016-11-18 23:45 | Cardiology Report ---
APPROVED REPORT EKG Measurement Heart [id number] Sinus rhythm with 1st degree AV block with premature supraventricular complexes Left axis deviation Right bundle branch block Abnormal ECG
[2016-11-19 00:20] VITALS: BP 135/72
[2016-11-19 04:10] VITALS: BP 118/69
[2016-11-19] MEDS: D5 1/2NS 1,000 ML IV SCH (06:20)
[2016-11-19 08:00] VITALS: BP 129/69
--- NOTE | 2016-11-19 08:46 | Cardiology Report ---
APPROVED REPORT EXAM: Two-dimensional and M-mode echocardiogram with Doppler and color Doppler. INDICATION Left ventricular function Technically difficult study due to poor acoustic windows. M-mode measurements not obtainable due to cardiac position. Study quality precludes accurate assessment of regional wall motion. Normal left ventricular chamber size, systolic function and wall motion. Left ventricular ejection fraction estimated to be grossly normal. No evidence of left ventricular hypertrophy. No evidence of pericardial fat or effusion. Right cardiac chamber sizes are within normal limits. Moderate left atrial enlargement by 2D. Mitral valve and aortic prosthesis is seen and appears to move appropriately. Mitral annulus and aortic root calcification. Pulmonic valve not well visualized. Normal tricuspid valve structure. IVC is normal in size with physiologic collapse. A color flow and spectral Doppler study was performed and revealed: No aortic regurgitation. Peak aortic valve gradient of 30mmHg and a mean of 20 mmHg. Aortic valve area 1.7cm2 calculated by continuity equation. Trace mitral regurgitation. Peak mitral valve diastolic gradient of 9 mmHg and a mean gradient of 3 mmHg Mitral valve area of 2.2 cm2 No tricuspid regurgitation. Tricuspid systolic velocities suggests peak right ventricular systolic pressure of 20 mmHg
[2016-11-19] MEDS: Heparin 5000 units/ml inj SUBQ SCH ×2 (09:05→22:00)
[2016-11-19 12:00] VITALS: BP 108/40
--- NOTE | 2016-11-19 12:27 | Diagnostic Imaging Report ---
APPROVED REPORT CPT Code: 96895 Vascular Symptoms Syncope Comments: Hx of CHF Technically difficult study due to vessel depth. Risk Factors Obesity: Doppler Spectral Velocity Analysis RightLeft RIGHT SIDE: CCA - Imaging reveals no significant plaque in the common carotid artery. ICA The Doppler signal indicates the degree of stenosis is moderate (50-60%) in the internal carotid artery, and (50%) in the external carotid artery. VERTEBRAL- The vertebral artery was not well visualized. LEFT SIDE: CCA - Imaging reveals no significant plaque in the common carotid artery. ICA The Doppler signal indicates the degree of stenosis is moderate (50-60%) in the internal carotid artery, and (50%) in the external carotid artery. VERTEBRAL- The vertebral artery was not well visualized.
--- NOTE | 2016-11-19 12:27 | Diagnostic Imaging Report ---
APPROVED REPORT CPT Code: 63550 Present Symptoms Comments: Pain Technically difficult study due to vessel depth. Hx of CHF BILATERAL: Imaging reveals a patent deep venous system bilaterally. There is no evidence of thrombus within the femoral, popliteal or tibial segments. The greater saphenous veins are also within normal limits. Doppler indicates normal spontaneous flow within these segments.
[2016-11-19 16:00] VITALS: BP 100/47
--- NOTE | 2016-11-19 16:11 | Pulmonology Progress Note ---
Assessment/Plan Problems: (1) Acute encephalopathy (2) Congestive heart failure (CHF) (3) Syncope Assessment/Plan frequent PAC's renal function improving echo reviewed social service consult dc home or downgrade when ok with cardiology Subjective ROS Limited/Unobtainable: No Interval Events: doing pt/ot Allergies: Coded Allergies: No Known Allergies (Unverified , 11/16/16) Objective Last 24 Hour Vital Signs Date Time Temp Pulse Resp B/P Pulse Ox O2 Delivery O2 Flow Rate FiO2 11/19/16 12:00 97.3 72 16 108/40 98 Room Air 11/19/16 12:00 74 11/19/16 08:10 68 11/19/16 08:05 68 11/19/16 08:00 64 11/19/16 08:00 97.3 68 18 129/69 97 Room Air 11/19/16 08:00 72 11/19/16 04:10 97.9 65 20 118/69 94 11/19/16 04:00 64 11/19/16 00:20 97.7 71 20 135/72 97 Room Air 11/19/16 00:00 76 11/18/16 20:00 70 11/18/16 20:00 70 18 107/72 94 Room Air 11/18/16 19:00 72 18 Room Air 21 Intake and Output 11/18/16 11/19/16 19:00 07:00 Intake Total 400 ml Balance 400 ml IV Total 400 ml # Voids 1 2 Objective General Appearance: WD/WN Lines, tubes and drains: peripheral, central line HEENT: normocephalic, atraumatic Neck: non-tender, normal alignment Respiratory/Chest: chest wall non-tender, lungs clear Cardiovascular/Chest: normal peripheral pulses, regular rhythm Abdomen: normal bowel sounds, non tender Genitourinary/Rectal: normal genital exam Extremities: non-tender General Appearance: WD/WN HEENT: normocephalic, atraumatic Respiratory/Chest: chest wall non-tender, lungs clear Cardiovascular: normal peripheral pulses, normal rate Abdomen: normal bowel sounds, soft, non tender Extremities: no cyanosis Neurologic/Psychiatric: cylinder valve repairer II-XII grossly normal Lymphatic: no neck adenopathy Microbiology Date/Time Source Procedure Growth Status 11/17/16 04:39 Nasal Nares MRSA Culture - Final NO METHICILLIN RESISTANT STAPH AUREUS... Complete 11/17/16 23:00 Urine,Clean Catch Urine Culture - Preliminary Resulted 11/17/16 04:39 Rectum VRE Culture - Final NO VANCOMYCIN RESISTANT ENTEROCOCCUS ... Complete Current Medications Medications (Trade) Dose Ordered Sig/Gregorio Route PRN Reason Start Time Stop Time Status Last Admin Dose Admin Acetaminophen (Tylenol) 650 mg Q4H PRN ORAL fever>100.5 11/17/16 12:30 12/17/16 12:29 Al Hydroxide/Mg Hydroxide (Mylanta II) 30 ml Q6H PRN ORAL dyspepsia 11/17/16 12:30 12/17/16 12:29 Albuterol/ Ipratropium (DuoNeb 0.5-3(2.5)mg/3ml) 3 ml Q4H PRN HHN Shortness of Breath 11/17/16 12:30 11/22/16 12:29 Clonidine HCl (Catapres) 0.1 mg Q4H PRN ORAL For High Blood Pressure 11/17/16 12:30 12/17/16 12:29 Dextrose (Dextrose 50%) STAT PRN IV Hypoglycemia 11/17/16 12:30 12/17/16 12:29 Dextrose/Sodium Chloride (D5 0.45% NS) 1,000 ml @ 50 mls/hr Q20H IV 11/17/16 12:30 12/17/16 12:29 11/19/16 06:20 Heparin Sodium (Porcine) (Heparin 5000 units/ml) 5,000 units EVERY 12 HOURS SUBQ 11/17/16 21:00 12/17/16 20:59 11/19/16 09:05 Lorazepam (Ativan 2mg/ml 1ml) 0.5 mg Q4H PRN IV For Anxiety 11/17/16 12:30 11/24/16 12:29 Morphine Sulfate (Morphine Sulfate) 2 mg Q4H PRN IVP Severe Pain (Pain Scale 7-10) 11/18/16 09:00 11/25/16 08:59 11/18/16 23:28 Nitroglycerin (Ntg) 0.4 mg Q5M X 3 DOSES PRN SL Prn Chest Pain 11/17/16 12:30 12/17/16 12:29 Ondansetron HCl (Zofran) 4 mg Q6H PRN IVP Nausea & Vomiting 11/17/16 12:30 12/17/16 12:29 Polyethylene Glycol (Miralax) 17 gm HSPRN PRN ORAL Constipation 11/17/16 21:00 12/17/16 20:59 Promethazine HCl/ Codeine (Phenergan with Codeine) 5 ml Q4H PRN ORAL For Cough 11/17/16 12:30 12/17/16 12:29 Temazepam (Restoril) 15 mg HSPRN PRN ORAL Insomnia 11/17/16 21:00 11/24/16 20:59 JENNIFER RASHID Nov 19, 2016 16:11
[2016-11-19 20:00] VITALS: BP 119/64
--- NOTE | 2016-11-19 21:18 | Cardiology Progress Note ---
Assessment/Plan Assessment/Plan 1. Syncope. 2. Coronary artery disease, status post coronary artery bypass grafting on multiple times. 3. Aortic valve and mitral valve replacement. 4. Obesity. 5. Sleep apnea. 6. Evidence of right heart failure. 7. Hypotension 8. ankle injury tele persoanlly reviewed echo prelim looks fin with no lv systolic disfunction but tds still nto orthosttic ivf would keep off acei and lasix for now willnto use midodrine will dc ivf tomorrow Subjective Cardiovascular: Denies: chest pain, irregular heart rate, lightheadedness, palpitations Respiratory: Denies: shortness of breath Gastrointestinal/Abdominal: Denies: abdominal pain Genitourinary: Denies: burning Subjective walked to br Objective Last 24 Hour Vital Signs Date Time Temp Pulse Resp B/P Pulse Ox O2 Delivery O2 Flow Rate FiO2 11/19/16 16:00 97.0 61 18 100/47 95 Room Air 11/19/16 12:00 97.3 72 16 108/40 98 Room Air 11/19/16 12:00 74 11/19/16 08:10 68 11/19/16 08:05 68 11/19/16 08:00 64 11/19/16 08:00 97.3 68 18 129/69 97 Room Air 11/19/16 08:00 72 11/19/16 04:10 97.9 65 20 118/69 94 11/19/16 04:00 64 11/19/16 00:20 97.7 71 20 135/72 97 Room Air 11/19/16 00:00 76 General Appearance: alert Neck: supple Cardiovascular: normal rate, regular rhythm Respiratory/Chest: lungs clear Abdomen: normal bowel sounds, non tender, soft Extremities: trace edema Intake and Output 11/18/16 11/19/16 19:00 07:00 Intake Total 400 ml Balance 400 ml IV Total 400 ml # Voids 1 2 Microbiology Date/Time Source Procedure Growth Status 11/17/16 04:39 Nasal Nares MRSA Culture - Final NO METHICILLIN RESISTANT STAPH AUREUS... Complete 11/17/16 23:00 Urine,Clean Catch Urine Culture - Preliminary Resulted 11/17/16 04:39 Rectum VRE Culture - Final NO VANCOMYCIN RESISTANT ENTEROCOCCUS ... Complete VERITO PAULSON Nov 19, 2016 21:18
[2016-11-20] VITALS: BP 137/87
[2016-11-20] MEDS: D5 1/2NS 1,000 ML IV SCH ×2 (00:30→08:19)
[2016-11-20 04:00] VITALS: BP 111/63
[2016-11-20 05:30] VITALS: BP 113/66
[2016-11-20 07:52] VITALS: BP 125/80
[2016-11-20 08:35] LABS: BASOPHILS % (AUTO) 0.8 % (0.0-2.0); LYMPHOCYTES % (AUTO) 13.8 % (20.0-45.0); MEAN CORPUSCULAR HEMOGLOBIN 29.8 PG (27.0-31.0); MEAN CORPUSCULAR HGB CONC 31.8 G/DL (32.0-36.0); MEAN CORPUSCULAR VOLUME 94 FL (80-99); MONOCYTES % (AUTO) 8.6 % (1.0-10.0); NEUTROPHILS % (AUTO) 73.8 % (45.0-75.0); PLATELET COUNT 213 K/UL (150-450); RED BLOOD COUNT 4.21 M/UL (4.70-6.10); WHITE BLOOD COUNT 8.5 K/UL (4.8-10.8)
[2016-11-20] MEDS: Heparin 5000 units/ml inj SUBQ SCH (08:35)
[2016-11-20 09:16] LABS: ALBUMIN/GLOBULIN RATIO 1.4 (1.0-2.7); CALCIUM 9.3 mg/dL (8.6-10.2); CREATININE 1.5 mg/dL (0.7-1.2); GLOMERULAR FILTRATION RATE 46.8 mL/min (>60); MAGNESIUM 2.3 mg/dL (1.7-2.5); PHOSPHORUS 3.3 mg/dL (2.5-4.8); TOTAL PROTEIN 7.4 g/dL (6.6-8.7)
[2016-11-20 11:32] VITALS: BP 117/67
[2016-11-20] MEDS ORDERED: D5 1/2NS 1000ml IV ONE (12:54)
--- NOTE | 2016-11-20 15:19 | Pulmonology Progress Note ---
Assessment/Plan Problems: (1) Acute encephalopathy (2) Congestive heart failure (CHF) (3) Syncope Assessment/Plan no new complains renal function improving echo reviewed social service consult dc home Subjective ROS Limited/Unobtainable: No Constitutional: Reports: no symptoms HEENT: Repors: no symptoms Allergies: Coded Allergies: No Known Allergies (Unverified , 11/16/16) Objective Last 24 Hour Vital Signs Date Time Temp Pulse Resp B/P Pulse Ox O2 Delivery O2 Flow Rate FiO2 11/20/16 12:00 69 11/20/16 11:32 96.4 65 20 117/67 95 Room Air 11/20/16 08:00 74 11/20/16 07:52 96.6 64 20 125/80 96 Room Air 11/20/16 07:30 66 18 Room Air 21 11/20/16 05:30 98.0 70 20 113/66 Room Air 11/20/16 05:30 69 70 67 11/20/16 04:39 65 11/20/16 04:00 98.0 70 20 111/63 95 Room Air 11/20/16 00:13 72 11/20/16 00:00 97.9 74 20 137/87 98 Room Air 11/19/16 20:00 97.5 69 18 119/64 95 Room Air 11/19/16 16:00 97.0 61 18 100/47 95 Room Air Intake and Output 11/19/16 11/20/16 19:00 07:00 Intake Total 1110 ml 900 ml Balance 1110 ml 900 ml Intake Oral 760 ml 550 ml IV Total 350 ml 350 ml # Voids 3 2 Objective General Appearance: WD/WN Lines, tubes and drains: peripheral, central line HEENT: normocephalic, atraumatic Neck: non-tender, normal alignment Respiratory/Chest: chest wall non-tender, lungs clear Cardiovascular/Chest: normal peripheral pulses, regular rhythm Abdomen: normal bowel sounds, non tender Genitourinary/Rectal: normal genital exam Extremities: non-tender General Appearance: WD/WN HEENT: normocephalic, atraumatic Respiratory/Chest: chest wall non-tender, lungs clear Cardiovascular: normal peripheral pulses, normal rate Abdomen: normal bowel sounds, soft, non tender, no mass Extremities: no cyanosis, no clubbing Skin: no rash Microbiology Date/Time Source Procedure Growth Status 11/17/16 23:00 Urine,Clean Catch Urine Culture - Final Mixed Gram Positive Organism Complete Laboratory Tests 11/20/16 07:00: White Blood Count 8.5, Red Blood Count 4.21L, Hemoglobin 12.5L, Hematocrit 39.5L , Mean Corpuscular Volume 94, Mean Corpuscular Hemoglobin 29.8, Mean Corpuscular Hemoglobin Concent 31.8L, Red Cell Distribution Width 15.0H, Platelet Count 213, Mean Platelet Volume 8.0, Neutrophils (%) (Auto) 73.8, Lymphocytes (%) (Auto) 13.8L, Monocytes (%) (Auto) 8.6, Eosinophils (%) (Auto) 3.0, Basophils (%) (Auto) 0.8 11/20/16 08:00: Sodium Level 144, Potassium Level 4.0, Chloride Level 99, Carbon Dioxide Level 30, Anion Gap 15, Blood Urea Nitrogen 19, Creatinine 1.5H, Estimat Glomerular Filtration Rate 46.8, Glucose Level 113H, Calcium Level 9.3, Phosphorus Level 3.3, Magnesium Level 2.3, Total Bilirubin 0.6, Aspartate Amino Transf (AST/SGOT ) 17, Alanine Aminotransferase (ALT/SGPT) 11, Alkaline Phosphatase 75, Total Protein 7.4, Albumin 4.4, Globulin 3.0, Albumin/Globulin Ratio 1.4 Current Medications Medications (Trade) Dose Ordered Sig/Gregorio Route PRN Reason Start Time Stop Time Status Last Admin Dose Admin Acetaminophen (Tylenol) 650 mg Q4H PRN ORAL fever>100.5 11/17/16 12:30 12/17/16 12:29 Al Hydroxide/Mg Hydroxide (Mylanta II) 30 ml Q6H PRN ORAL dyspepsia 11/17/16 12:30 12/17/16 12:29 Albuterol/ Ipratropium (DuoNeb 0.5-3(2.5)mg/3ml) 3 ml Q4H PRN HHN Shortness of Breath 11/17/16 12:30 11/22/16 12:29 Clonidine HCl (Catapres) 0.1 mg Q4H PRN ORAL For High Blood Pressure 11/17/16 12:30 12/17/16 12:29 Dextrose (Dextrose 50%) STAT PRN IV Hypoglycemia 11/17/16 12:30 12/17/16 12:29 Dextrose/Sodium Chloride (D5 0.45% NS) 1,000 ml @ 50 mls/hr Q20H IV 11/17/16 12:30 12/17/16 12:29 11/20/16 08:19 Heparin Sodium (Porcine) (Heparin 5000 units/ml) 5,000 units EVERY 12 HOURS SUBQ 11/17/16 21:00 12/17/16 20:59 11/20/16 08:35 Lorazepam (Ativan 2mg/ml 1ml) 0.5 mg Q4H PRN IV For Anxiety 11/17/16 12:30 11/24/16 12:29 Morphine Sulfate (Morphine Sulfate) 2 mg Q4H PRN IVP Severe Pain (Pain Scale 7-10) 11/18/16 09:00 11/25/16 08:59 11/18/16 23:28 Nitroglycerin (Ntg) 0.4 mg Q5M X 3 DOSES PRN SL Prn Chest Pain 11/17/16 12:30 12/17/16 12:29 Ondansetron HCl (Zofran) 4 mg Q6H PRN IVP Nausea & Vomiting 11/17/16 12:30 12/17/16 12:29 Polyethylene Glycol (Miralax) 17 gm HSPRN PRN ORAL Constipation 11/17/16 21:00 12/17/16 20:59 Promethazine HCl/ Codeine (Phenergan with Codeine) 5 ml Q4H PRN ORAL For Cough 11/17/16 12:30 12/17/16 12:29 Temazepam (Restoril) 15 mg HSPRN PRN ORAL Insomnia 11/17/16 21:00 11/24/16 20:59 JENNIFER RASHID Nov 20, 2016 15:19
--- NOTE | 2016-11-23 09:09 | Discharge Summary ---
Discharge Summary Hospital Course Date of Admission Nov 17, 2016 at 00:35 Date of Discharge Nov 20, 2016 at 12:55 Admitting Diagnosis syncope, chf HPI Timothy Naranjo is a 66 year old male who was admitted on Nov 17, 2016 at 00: 35 for Syncope/Congestive Heart Failure Hospital Course dc summary#[id number] Discharge Medications Continued Medications: Aspirin (Aspirin) 81 Mg Tab.chew 81 MG PO, TAB Discharge Condition Upon Discharge: stable Discharge Disposition Patient was discharged to [facility] () Discharge Diagnoses: Discharge Instructions Discharge Instructions Special Instructions I have been assigned to complete a D/C Summary on this account. I was not involved in the patient management Etta Marin NP (Vanchtein) Nov 23, 2016 09:09
--- NOTE | 2016-11-24 01:28 | Discharge Summary 2 SIG ---
DATE OF ADMISSION: 11/17/2016 DATE OF DISCHARGE: 11/20/2016 REASON FOR ADMISSION: 66-year-old morbidly obese male came to the emergency room complaining of syncopal episode. The patient with history of previous recurrent syncopal episodes. Extensive workup done recently at [facility]. The patient has a history of congestive heart failure. The patient reported having loss consciousness while he was standing. The patient stated that he had leg swelling and started on diuretic, edema improved with diuretic use. Workup in the emergency room revealed an EKG with a normal sinus rhythm, right bundle branch, and prolonged QT interval. Chest-ray revealed no acute cardiopulmonary disease. Urine tox screen was negative. The patient initially had mild leukocytosis of 11.4, which resolved the next day. Urinalysis was negative for evidence of UTI. Chemistry revealed evidence of renal insufficiency with BUN of 34 and creatinine of 1.9. ProBNP was 491. Troponin was negative. Pulse oximetry was stable on the room air. The patient was afebrile. Blood pressure was 116/84. The patient admitted for further management. ADMITTING DIAGNOSES: 1. Syncope with history of recurrent syncope. 2. Congestive heart failure. 3. Right bundle branch block with prolonged QT 4. Morbid obesity. 5. Acute renal failure/acute tubular necrosis. HOSPITAL STAY: The patient admitted to telemetry floor. Neurology and cardiac consults were requested. The patient had evidence of right heart failure per upholstery department supervisor: EKG with right bundle-branch block and elevated QT likely secondary to obstructive sleep apnea. The patient using CPAP machine at home. Echocardiogram was ordered to rule out any left heart failure and was technically difficult study secondary to morbid obesity. However, it showed grossly normal ejection fraction. No evidence of arrhythmia on telemetry, which was reviewed by upholstery department supervisor. Troponin was negative. Orthostatic vital signs were checked. No evidence of orthostatic changes. The patient had a slight change in systolic blood pressure from sitting to standing position, but less than to be qualified for orthostasis. Neurologist seen the patient, who recommended gentle hydration and continue aspirin. Carotid duplex revealed moderate stenosis bilaterally internal and external carotid artery 50%. Renal parameters improved with gentle hydration. Creatinine was down to 1.5. Blood pressure stable. The patient uses CPAP at night time. Supplemental oxygen and pulmonary toilet provided as needed. Stable respiratory status. No evidence of COPD exacerbation. Neurologist concluded that the syncope likely vasovagal. However, upholstery department supervisor could not completely exclude orthostatic secondary to orthostatic changes, therefore he recommended the patient to be off for Lasix and EFREN for now. The patient was advised to follow up with his primary [place]. DISCHARGE DIAGNOSES: 1. Syncope with history of recurrent syncope, likely vasovagal versus orthostatic. 2. Evidence of right heart failure. 3. Coronary artery disease with history of coronary artery bypass graft. 4. Morbid obesity. 5. Obstructive sleep apnea, on CPAP. 6. Valvular heart disease with history of aortic valve replacement and mitral valve replacement. 7. Hypertension, resolved. 8. Acute renal failure/acute tubular necrosis on chronic kidney disease, improved. 9. Carotid artery disease. DISCHARGE MEDICATIONS: Hold Lasix and EFREN for now until seen by primary care provider. DISCHARGE INSTRUCTIONS: Patient was discharged to [facility], where he resides. Follow up with primary medical care providerat the [place] facility. Bernie Rodriguez M.D. I have been assigned to dictate discharge summary on this account and I was not involved in the patient's management. Etta Marin (Vanchtein) N.P. DR: Christy JOB#: [id number] CC: [id number]
== END 2016-11-20 12:55 | disposition home or self-care (01) | DRG 312 ==
LOC: EDBD 23:12 → EMR 23:46 → 2E 11-17 00:35 → EDBEDREQ 11-17 05:48 → 2E 11-18 14:25
DX: I95.1 Orthostatic hypotension (principal); N17.0 Acute kidney failure with tubular necrosis; G93.40 Encephalopathy, unspecified; Z68.42 Body mass index [BMI] 45.0-49.9, adult; I45.10 Unspecified right bundle-branch block; I50.9 Heart failure, unspecified; J44.9 Chronic obstructive pulmonary disease, unspecified; I12.9 Hypertensive chronic kidney disease with stage 1 through stage 4 chronic kidney disease, or unspecified chronic kidney disease; N18.9 Chronic kidney disease, unspecified; G47.33 Obstructive sleep apnea (adult) (pediatric); E66.01 Morbid (severe) obesity due to excess calories; R55 Syncope and collapse; I45.81 Long QT syndrome; Z95.1 Presence of aortocoronary bypass graft; Z95.2 Presence of prosthetic heart valve
CPT/HCPCS: 36415; 71010; 80053; 80061; 80300; 81001; 82533; 82550; 82553; 83735; 83880; 84100; 84443; 84484; 85025; 85610; 85730; 87081; 87086; 93005; 93306; 93880; 93970; 94664